=== PATIENT | male | born 1950 | race Caucasian/White ===

== ENCOUNTER → 2016-09-25 | Outpatient (CLI) | payer BC ==
[~2016-09-25] MED LIST: FAMO40TA6 PO; HYDC25 PO; LISI-461 PO; ONDA4TAB46 PO; PRT/20 PO; SERT-234 PO
[2016-09-25 10:44] LABS: BASO ABS # 0.07 K/uL (0-0.2); COMPLETE YES; EOS % 4.5 %; HEMATOCRIT 39.5 % (42-52); IG% 4.2 %; LYMPH % 21.6 %; LYMPH ABS # 1.48 K/uL (1.2-3.4); MEAN CELL VOLUME 83.3 fL (80-100); MEAN CORPUSCULAR HEMOGLOBIN 28.7 pg (25-34); MEAN CORPUSCULAR HGB CONC 34.4 g/dl (32-36); MEAN PLATELET VOLUME 10.3 fL (7.4-10.4); MONO % 10.2 %; NEUT % 58.5 %; PLATELET COUNT 232 K/uL (130-400); RED BLOOD COUNT 4.74 M/uL (4.7-6.1); WHITE BLOOD COUNT 6.86 K/uL (4.8-10.8)
[2016-09-25 10:57] LABS: CALCIUM 9.3 mg/dl (8.5-10.1)
[2016-09-25 10:58] LABS: ESTIMATED AVERAGE GLUCOSE 192 mg/dl; HA1C FLAG Normal (Normal)
[2016-09-25 11:07] LABS: ALB/GLOB RATIO 1.4 (0.9-2); ALKALINE PHOSPHATASE 75 U/L (45-117); ALT/SGPT 27 U/L (12-78); AST/SGOT 13 U/L (15-37); BLOOD UREA NITROGEN 25 mg/dl (7-18); BUN/CREATININE RATIO 19.3 (10-20); CARBON DIOXIDE 27 mmol/L (21-32); CHLORIDE 98 mmol/L (98-107); CHOLESTEROL 173 mg/dl (0-200); CHOLESTEROL/HDL RATIO 6.2; GLUCOSE 309 mg/dl (70-99); HDL CHOLESTEROL 28 mg/dl; POTASSIUM 3.9 mmol/L (3.5-5.1); SODIUM 135 mmol/L (136-145); TRIGLYCERIDES 452 mg/dl (0-150); URIC ACID 5.8 mg/dl (2.6-7.2)
[2016-09-25 11:09] LABS: PROSTATE SPECIFIC ANTIGEN 0.568 ng/ml (0.000-4.000)
[2016-09-25 11:17] LABS: BETA-HYDROXYBUTYRATE 1.56 mg/dL (0.2-2.81)
--- NOTE | 2016-09-29 11:30 | CODING QUERY MEDICAL NECESSITY ---
CQSUPPORTING DIAGNOSIS NEEDED A supporting diagnosis is required for the test/procedure performed on this patient in order for us to be reimbursed by the patient's insurance. Please provide a supporting diagnosis for the following test/procedure listed below next to the test name along with your signature. *If there is no additional diagnosis for this patient that would support the following test/procedure please document that below next to the test/procedure. Test(s)/Procedure(s) that require a supporting diagnosis: DOS 09/25/16 PROSTATE SPECIFIC GLYCATED HEMOGLOBIN CBC TEST Provider Signature: Date: Thank you [facility] Once completed, please kindly fax back to [phone] For questions please call [phone]
== END | disposition home or self-care (01) ==
LOC: C.LABBC 08:06
PROVIDERS: ATTEND Internal Medicine
DX: E78.1 Pure hyperglyceridemia (principal); Z12.5 Encounter for screening for malignant neoplasm of prostate; E11.9 Type 2 diabetes mellitus without complications; D64.9 Anemia, unspecified

== ENCOUNTER → 2017-01-01 | Outpatient (CLI) | payer BC ==
[2017-01-01 11:36] LABS: ESTIMATED AVERAGE GLUCOSE 108 mg/dl; HA1C FLAG Normal (Normal)
[2017-01-01 11:39] LABS: ALT/SGPT 23 U/L (12-78); AST/SGOT 14 U/L (15-37); BLOOD UREA NITROGEN 28 mg/dl (7-18); BUN/CREATININE RATIO 21.2 (10-20); CALCIUM 9.1 mg/dl (8.5-10.1); CARBON DIOXIDE 26 mmol/L (21-32); CHLORIDE 105 mmol/L (98-107); GLUCOSE 147 mg/dl (70-99); POTASSIUM 3.8 mmol/L (3.5-5.1); SODIUM 138 mmol/L (136-145)
[2017-01-01 11:42] LABS: ALB/GLOB RATIO 1.2 (0.9-2); ALKALINE PHOSPHATASE 67 U/L (45-117); CHOLESTEROL 90 mg/dl (0-200); CHOLESTEROL/HDL RATIO 3.5; HDL CHOLESTEROL 26 mg/dl; LDL CHOLESTEROL CALCULATED 9 mg/dl; TRIGLYCERIDES 274 mg/dl (0-150); VERY LOW DENSITY LIPOPROT CALC 55 mg/dl
== END | disposition home or self-care (01) ==
LOC: C.LABBC 08:00
PROVIDERS: ATTEND Internal Medicine
DX: E78.5 Hyperlipidemia, unspecified (principal)

== ENCOUNTER → 2017-05-02 | Outpatient (CLI) | payer BC ==
[2017-05-02 17:14] LABS: BLOOD UREA NITROGEN 28 mg/dl (7-18); CREATININE 1.22 mg/dl (0.60-1.40)
== END | disposition home or self-care (01) ==
LOC: C.LABBC 13:09
PROVIDERS: ATTEND Family Medicine Adult Medicine
DX: Z01.812 Encounter for preprocedural laboratory examination (principal)

== ENCOUNTER → 2017-05-02 | Outpatient (CLI) | payer BC ==
--- NOTE | 2017-05-02 10:57 | DIAGNOSTIC IMAGING REPORT ---
ULTRASOUND OF THE CAROTID ARTERIES CLINICAL HISTORY: [id number] COMPARISON STUDY: None. TECHNIQUE: Real-time, grayscale, and color Doppler sonography of the carotid arteries was performed. Imaging reviewed in the transverse and longitudinal planes. NASCET criteria was utilized for stenosis calcification. FINDINGS: There is mild atherosclerotic plaque present . The peak systolic velocity within the right internal carotid artery is 77 cm/sec. The systolic velocity ratio of right internal to common carotid artery is 0.9. The peak systolic velocity within the left internal carotid artery is 69 cm/sec. The systolic velocity ratio left internal to common carotid artery is 0.7. Antegrade flow is seen in the vertebral arteries. The external carotid arteries are patent. Blood pressure in the right arm measured 111 mm/Hg. Blood pressure in the left arm measured 106 mm/Hg. IMPRESSION: No evidence of hemodynamically significant carotid stenosis. Electronically signed by: Aidan Lim M.D. 05/02/2017 10:56 AM Dictated Date/Time: 05/02/2017 10:49 AM
== END | disposition home or self-care (01) ==
LOC: C.ULTR 10:06
PROVIDERS: ATTEND Family Medicine Adult Medicine
DX: R42 Dizziness and giddiness (principal)

== ENCOUNTER → 2017-05-16 | Outpatient (CLI) | payer BC ==
[~2017-05-16] MED LIST changes: +GADAVIST IV PRN
--- NOTE | 2017-05-16 08:55 | DIAGNOSTIC IMAGING REPORT ---
MRI OF THE BRAIN WITHOUT AND WITH IV CONTRAST CLINICAL HISTORY: H91.90 Hearing lossH90.41 Right asymmetrical DIZZINESS COMPARISON STUDY: April 2009 TECHNIQUE: MRI of the brain was performed from the vertex to the skull base utilizing various T1 and T2 weighted sequences. Following the IV administration of 9 mL of Gadavist contrast, additional enhanced images were obtained. FINDINGS: Sagittal T1, axial diffusion, proton density and T2 weighted axial, coronal FLAIR, and pre and post axial T1-weighted images were acquired. These were supplemented with post gadolinium coronal T1 weighted images. No intra or extra-axial mass lesions are visualized. Axial diffusion-weighted images reveal no evidence of acute or subacute infarction. There is no evidence of ventricular dilatation. Proton density T2-weighted and FLAIR images reveal scattered foci of increased T2 signal within the white matter, likely on a small vessel basis. There are no abnormal flow voids. There is no evidence of pathologic enhancement. The 7th and 8th nerve complexes appear normal. No pathologic cerebellopontine angle masses are visualized. IMPRESSION: 1. No significant change from the prior 2008 study. No acute intracranial findings. 2. No evidence of acute or subacute infarction 3. No evidence of intracranial mass. Electronically signed by: Aidan Lim M.D. 05/16/2017 8:54 AM Dictated Date/Time: 05/16/2017 8:50 AM
== END | disposition home or self-care (01) ==
LOC: C.MRI 07:26
PROVIDERS: ATTEND Family Medicine Adult Medicine
DX: H90.41 Sensorineural hearing loss, unilateral, right ear, with unrestricted hearing on the contralateral side (principal)

== ENCOUNTER → 2017-06-29 | Outpatient (CLI) | payer BC ==
[~2017-06-29] MED LIST changes: -GADAVIST IV PRN
[2017-06-29 11:20] LABS: HEMOGLOBIN A1C 5.4 % (4.5-5.6)
[2017-06-29 11:27] LABS: ALBUMIN 3.8 gm/dl (3.4-5.0); ALT/SGPT 27 U/L (12-78); AST/SGOT 14 U/L (15-37); BLOOD UREA NITROGEN 25 mg/dl (7-18); CALCIUM 8.8 mg/dl (8.5-10.1); CARBON DIOXIDE 28 mmol/L (21-32); CREATININE 1.06 mg/dl (0.60-1.40); GLUCOSE 178 mg/dl (70-99); POTASSIUM 3.7 mmol/L (3.5-5.1); SODIUM 137 mmol/L (136-145)
[2017-06-29 11:29] LABS: ALKALINE PHOSPHATASE 70 U/L (45-117); CHOLESTEROL 114 mg/dl (0-200); TOTAL PROTEIN 6.8 gm/dl (6.4-8.2)
== END | disposition home or self-care (01) ==
LOC: C.LABBC 08:57
PROVIDERS: ATTEND Internal Medicine
DX: E11.69 Type 2 diabetes mellitus with other specified complication (principal); E78.5 Hyperlipidemia, unspecified